=== PATIENT | male | born 1980 ===

== ENCOUNTER 2017-09-01 23:00 | Emergency (ER) | payer MEDICAID ==
[2017-09-01 23:08] VITALS: BMI 25.0
[2017-09-01 23:12] VITALS: RESP 18
--- NOTE | 2017-09-02 00:04 | ED PDOC ---
Arrival/HPI - General Chief Complaint: Cough, Cold, Congestion Time Seen by Provider: 09/01/17 23:51 Historian: Patient - History of Present Illness Narrative History of Present Illness (Text): 09/02/17 00:03 Galo Hopper is a 37 year old male smoker who presents to the Emergency department complaining of cough for the past week. Patient reports associated body aches, rhinorrhea, and wheezing. Patient denies any fever, chills, chest pain, shortness of breath, nausea, vomiting, diarrhea, urinary symptoms, back pain, neck pain, headache, or any other complaints. Time/Duration: 1 week Symptom Onset: Gradual Symptom Course: Unchanged Activities at Onset: Light Context: Home Past Medical History - Provider Review Nursing Documentation Reviewed: Yes - Infectious Disease Hx of Infectious Diseases: C.diff - Tetanus Immunization Tetanus Immunization: Unknown - Cardiac Hx Cardiac Disorders: Yes Hx CO: No Hx Hypertension: Yes - Pulmonary Hx Respiratory Disorders: No - Neurological Hx Neurological Disorder: Yes Other/Comment: " I WAS GETTING MUSCLE SPASMS IN DIFFERENT AREAS-I SAW A NEUROLOGIST AND WAS TESTED- HE BELIEVES I NEED ADDITIONAL VITAMIN D AND B, WHICH I HAVE BEEN TAKING. THE SPASMS ARE LESS." TAKES FLEXERIL PRN WITH SOME RELIEF. HAS NOT BEEN DX. YET - HEENT Hx HEENT Disorder: No - Renal Hx Renal Disorder: No - Endocrine/Metabolic Hx Endocrine Disorders: No - Hematological/Oncological Hx Blood Disorders: No Hx Blood Transfusions: No - Integumentary Hx Dermatological Disorder: No - Musculoskeletal/Rheumatological Hx Musculoskeletal Disorders: Yes Hx Falls: No Hx Fractures: Yes (RIGHT 5TH KNUCKLE-SURGERY DONE) Other/Comment: MUSCLE SPASMS. CARPAL IRVIN LEFT WRIST. PRESSURE ON LEFT ELBOW , ULNAR NERVE WITH RECENT SURGERY, 2016; LEFT ARM WITH SURGICAL DRSG. AND ROSARIO BANDAGE FROM WRIST TO ABOVE ELBOW. - Gastrointestinal Hx Gastrointestinal Disorders: Yes Hx Colitis: Yes (09/2015) Other/Comment: COLITIS, C DIF - Genitourinary/Gynecological Hx Genitourinary Disorders: No - Psychiatric Hx Psychophysiologic Disorder: Yes Hx Substance Use: Yes (MARIJUANA FOR NAUSEA, VOMITING) - Past Surgical History Past Surgical History: No Previous - Surgical History Hx Open Reduction Internal Fixation: Yes (Right 5th knuckle followed by removal) Hx Orthopedic Surgery: (RIGHT 5TH KNUCKLE FX. REPAIRED) Other/Comment: , RELEASE PRESSURE LEFT ELBOW ULNAR NERVE. - Anesthesia Hx Anesthesia: Yes Hx Anesthesia Reactions: No Hx Malignant Hyperthermia: No - Suicidal Assessment Feels Threatened In Home Enviroment: No Family/Social History - Physician Review Nursing Documentation Reviewed: Yes Family/Social History: Unknown Family HX Smoking Status: Former Smoker Hx Alcohol Use: No Hx Substance Use: Yes (MARIJUANA FOR NAUSEA, VOMITING) Allergies/Home Meds Allergies/Adverse Reactions: Allergies No Known Allergies Allergy (Verified 09/01/17 23:08) Home Medications: Home Meds Medication Instructions Recorded Confirmed amLODIPine [Norvasc] 5 mg PO QAM 06/18/14 09/01/17 Review of Systems - Physician Review All systems were reviewed & negative as marked: Yes - Review of Systems Constitutional: Other (+body aches). absent: Fevers Eyes: Normal ENT: Rhinorrhea Respiratory: Cough. absent: SOB Cardiovascular: Normal. absent: Chest Pain Gastrointestinal: Normal. absent: Abdominal Pain, Diarrhea, Nausea, Vomiting Genitourinary Male: Normal. absent: Dysuria, Frequency, Hematuria, Urinary Output Changes Musculoskeletal: Normal. absent: Back Pain, Neck Pain Skin: Normal. absent: Rash Neurological: Normal. absent: Headache, Dizziness Endocrine: Normal Hemo/Lymphatic: Normal Psychiatric: Normal Physical Exam Vital Signs Reviewed: Yes Vital Signs Temp Pulse Resp BP Pulse Ox 09/02/17 01:33 98.7 F 73 18 134/74 100 09/01/17 23:09 98.4 F 85 18 163/90 H 99 Temperature: Afebrile Blood Pressure: Normal Pulse: Regular Respiratory Rate: Normal Appearance: Positive for: Well-Appearing, Non-Toxic, Comfortable Pain Distress: None Mental Status: Positive for: Alert and Oriented X 3 - Systems Exam Head: Present: Atraumatic, Normocephalic Pupils: Present: PERRL Extroacular Muscles: Present: EOMI Conjunctiva: Present: Normal Mouth: Present: Moist Mucous Membranes Neck: Present: Normal Range of Motion Respiratory/Chest: Present: Wheezes (Faint-end expiratory wheeze). No: Respiratory Distress, Accessory Muscle Use Cardiovascular: Present: Regular Rate and Rhythm, Normal S1, S2. No: Murmurs Abdomen: Present: Normal Bowel Sounds. No: Tenderness, Distention, Peritoneal Signs Back: Present: Normal Inspection Upper Extremity: Present: Normal Inspection. No: Cyanosis, Edema Lower Extremity: Present: Normal Inspection. No: Edema Neurological: Present: GCS=15, CN II-XII Intact, Speech Normal Skin: Present: Warm, Dry, Normal Color. No: Rashes Psychiatric: Present: Alert, Oriented x 3, Normal Insight, Normal Concentration Medical Decision Making ED Course and Treatment: 09/02/17 00:03 Impression: 37 year old male complaining of cough, runny nose, body aches, and wheezing. Plan: -- Chest X-ray -- Rapid influenza -- Duoneb -- Reassess and disposition Progress Notes: - Lab Interpretations Lab Results: Lab Results 09/02/17 00:30: Influenza Typ A,B (EIA) Negative for flu a/b - RAD Interpretation Radiology Orders: 09/02/17 00:12 CHEST PORTABLE [RAD] Stat - Medication Orders Current Medication Orders: Discontinued Medications Albuterol/Ipratropium (Duoneb 3 Mg/0.5 Mg (3 Ml) Ud) 3 ml IH ONCE STA Stop: 09/02/17 00:13 Last Admin: 09/02/17 00:38 Dose: 3 ml - Scribe Statement The provider has reviewed the documentation as recorded by the Scribe Nona Macias All medical record entries made by the Scribe were at my direction and personally dictated by me. I have reviewed the chart and agree that the record accurately reflects my personal performance of the history, physical exam, medical decision making, and the department course for this patient. I have also personally directed, reviewed, and agree with the discharge instructions and disposition. Disposition/Present on Arrival - Present on Arrival Any Indicators Present on Arrival: No History of DVT/PE: No History of Uncontrolled Diabetes: No Urinary Catheter: No History of Decub. Ulcer: No History Surgical Site Infection Following: None - Disposition Have Diagnosis and Disposition been Completed?: Yes Diagnosis: Bronchitis Disposition: HOME/ ROUTINE Disposition Time: 01:59 Patient Plan: Discharge Condition: GOOD Discharge Instructions (ExitCare): Acute Bronchitis, Adult (DC) Additional Instructions: Take meds as prescribed/follow up with your doctor this week Prescriptions: guaiFENesin/Codeine [Robitussin w/Codeine] 5 ml PO Q6H PRN #6 oz PRN Reason: Cough Azithromycin [Zithromax] 250 mg PO DAILY #4 tab Forms: [employer] ([place]), WORK NOTE
[2017-09-02] MEDS ORDERED: Albuterol-Ipratrop 3 mg / 0.5 (3 ml) UD IH STA (00:12)
[2017-09-02 01:34] VITALS: BP 134/74; PULSE 73; TEMP 98.7; O2SAT 100
--- NOTE | 2017-09-02 10:12 | RAD ---
HISTORY: cough COMPARISON: No prior. FINDINGS: LUNGS: No active pulmonary disease. PLEURA: No significant pleural effusion identified, no pneumothorax apparent. CARDIOVASCULAR: Normal. OSSEOUS STRUCTURES: No significant abnormalities. VISUALIZED UPPER ABDOMEN: Normal. OTHER FINDINGS: None. IMPRESSION: No active disease.
== END 2017-09-02 02:32 | disposition home or self-care (01) ==
LOC: ED 23:00
DX: J20.9 Acute bronchitis, unspecified (principal); I10 Essential (primary) hypertension; Z87.891 Personal history of nicotine dependence